=== PATIENT | male | born 1940 | race Caucasian/White ===

== ENCOUNTER 2024-02-09 19:50 | Emergency (ER) | payer MEDICARE, OTHER, SELFPAY ==
[2024-02-09 19:57] VITALS: BP 165/73; BMI 23.2
--- NOTE | 2024-02-09 21:32 | ED.GENMED ---
History of Present Illness
General
Chief Complaint: Fall
Source: patient and family
Exam Limitations: dementia
Time Seen by Provider: 02/09/24 20:11
Travel History
Have you had any contact with someone who has COVID-19?: No
Do you have any symptoms of coronavirus? Fever > 100 degrees, chills, cough, shortness of breath, sore throat, loss of taste or smell, muscle aches, or headache?: No
History of Present Illness
History of Present Illness:
83-year-old male presents after fall this morning. He tried to get up off the toilet and fell backwards. Daughter states she sees little redness to the back of his scalp and suspects he hit his head. No blood thinners. She also noticed that he
fell earlier in the week and has bruising to the left arm that is healing. Also has a skin tear. Patient today was able to get around with a walker and was not bearing weight on his arms with a walker without much difficulty but had complained of
a little bit of right shoulder pain. She does note that he does have a history of arthritis patient denies neck or back pain. Of note the patient has a defibrillator but the patient's daughter states they have electively turned it off. They do
not want aggressive measures.
Past History
Past History
ED Past Medical History: CAD, GERD, HTN and Other (Ischemic cardiomyopathy, aortic insuff, History of upper GI bleed, GI ulcer, Álvarez's esophagus, kidney stones, dementia)
ED Past Surgical History: Cardiac (pacer)
Social History
Tobacco: Former smoker
Alcohol: None
Drug: None
Personal:
Living: with family
Employment: Retired
Family History
Family History: Other
Phy Exam
Physical Exam
Physical Exam:
CONSTITUTIONAL Vital signs reviewed, Patient alert and oriented to person, place. Well-appearing
HEAD atraumatic, normocephalic.
EYES eyelids normal to inspection, Extraocular muscles intact, Conjunctiva normal, Sclera normal.
NECK normal range of motion, Trachea midline, no jugular venous distention. no midline TTP
RESP no respiratory distress
BACK No obvious deformities
UPPER EXTREMITY mildly limited range of motion of the right shoulder due to pain but appears mild and the pain is able to fully flex at the shoulder as well as abduct the right shoulder. He does have ecchymosis around the proximal clavicle on the
right and a little bit of tenderness in that area. There is no obvious deformity or dislocation. Unclear of the age of the ecchymosis. He has a large amount of ecchymosis to the left posterior forearm and left elbow that does appear old as it is
healing. There is small skin tear noted to the proximal left forearm laterally. No active bleeding. No drainage.
LOWER EXTREMITY Gross range of motion normal, Gross motor strength normal
NEURO Speech normal, No focal motor deficits include, Cranial Nerves intact to screening exam.
SKIN Skin warm, dry, and normal in color.
Course
Orders/Labs/Results
Orders:
Orders
02/09/24 20:02
CR Shoulder, Trauma - Right Urgent
Comment:
Reason For Exam: pain
02/09/24 20:29
CT Head W/o Iv Contrast Urgent
Comment:
Reason For Exam: fall
Clavicle Complete, Right CR [CR Clavicle - Right Complete] Urgent
Comment:
Reason For Exam: fall
Elbow, 3 view, Left [CR Elbow - Left Min 3 Views ] Urgent
Comment:
Reason For Exam: fall
Vital Signs
Initial and Last Documented VS:
Initial Vital Signs
Temp Pulse Resp BP Pulse Ox
98.9 F 62 16 165/73 98
02/09/24 19:57 02/09/24 19:57 02/09/24 19:57 02/09/24 19:57 02/09/24 19:57
Last Documented Vital Signs
Temp Pulse Resp BP Pulse Ox
98.9 F 62 16 165/73 98
02/09/24 19:57 02/09/24 19:57 02/09/24 19:57 02/09/24 19:57 02/09/24 19:57
MDM/Problems Addressed
MDM/Problems Addressed:
Skin tear, contusion, fall, minor head injury
*Radiology
Radiology exam reviewed: all reviewed NAD by ED Provider
*Pulse Oximetry
Patient hypoxic: no
*Critical Care Note
Total Time (30-74mins, 75-104mins- exclusive of procedures): Not Applicable
Data Reviewed
Further Testing Considered But Not Given:
Consider C-spine imaging with no gross deformities or tenderness
Patient Management
Escalation/DeEscalation of care consider admission/obs:
Patient mentally at baseline. No obvious skin findings. Daughter does not want aggressive measures. Skin tear addressed. Okay for discharge
ED Attending Note
-
Portions of this chart may have been created with voice recognition software.� Occasional wrong word or��sound alike� substitutions may have occurred due to the inherent limitations of voice recognition software.
Discharge Plan
Departure
Patient Disposition: Home (Routine Discharge)
Date of Disposition: 02/09/24
Time of Disposition: 21:37
Patient with high blood pressure during this ER visit?: Yes
Discharge Problem:
Minor head injury, Skin tear, Contusion
Instructions: Wound Care (DC), Head Injury in Adults (DC), Skin Abrasions (DC), BLOOD PRESSURE
Prescriptions:
No Action
Lupron Depot 3.75 MG syringe kit
3.75 mg IM .YEARLY
Patient Comments:
states he received injection in October 2015?
levothyroxine 88 MCG tablet
88 mcg PO DAILY
Fiber-Tabs 625 MG tablet
625 mg PO DAILY
ergocalciferol (vitamin D2) 50,000 UNITS capsule
50,000 units PO Q14D
Patient Comments:
takes on the 15 and 30 of each month
atorvastatin 40 MG tablet
40 mg PO QPM Qty: 90 3RF
nitroglycerin 0.4 MG tablet, sublingual
0.4 mg sublingual [id number] PRN (Reason: Chest Pain ) Qty: 30 2RF
carvedilol 12.5 MG tablet
12.5 mg PO BID Qty: 180 3RF
ferrous sulfate 325 mg (65 mg iron) Tablet
325 mg PO QPM
multivitamin Tablet
1 tab PO DAILY
aspirin 81 mg Tablet,Delayed Release (Dr/Ec)
81 mg PO DAILY
calcium citrate-vitamin D3 [Citracal + D Maximum] 315 mg-6.25 mcg (250 unit) Tablet
1 tab PO BID
melatonin
1 tab PO HS
Patient Comments:
02/09/2024: Family unsure of dosage, thinks between 3-5mg
pantoprazole 40 MG tablet,delayed release (DR/EC)
40 mg PO DAILY Qty: 90 3RF
Referrals:
Chris Truong MD [Family Provider] -
Activity Restrictions/Additional Instructions:
Please keep wounds clean and dry. You may change the dressing once a day but please be sure to use nonstick covers and avoid heavy adhesives on the skin as it could cause further damage. Consider use of Vaseline daily. Return for fevers redness,
changes in mentation or any other concerns.
Interventions
Interventions:
*Risk Screen - Suicide Last Done: 02/09/24 19:57
*Neglect/Abuse Screening Last Done: 02/09/24 19:57
*ED COVID-19 Vaccine History Last Done: 02/09/24 19:57
Discharge Date and Time
Print Language: MICRONESIAN
== END 2024-02-09 22:28 | disposition home or self-care (01) ==
LOC: EMR 19:50
PROVIDERS: EMERGENCY PHYSICIAN Emergency Medicine; FAMILY PHYSICIAN Internal Medicine
DX: S09.90XA Unspecified injury of head, initial encounter (principal); S51.812A Laceration without foreign body of left forearm, initial encounter; S50.12XA Contusion of left forearm, initial encounter; W18.11XA Fall from or off toilet without subsequent striking against object, initial encounter; I10 Essential (primary) hypertension; Z87.891 Personal history of nicotine dependence
CPT/HCPCS: 99284; 70450; 73000; 73030; 73080